=== PATIENT | female | born 1970 | race Caucasian/White ===

== ENCOUNTER 2017-01-03 11:58 | Emergency (ER) | payer MEDICAID ==
[~2017-01-03] VITALS: Ht 175.3 cm; Wt 117.9 kg
[~2017-01-03 11:58] MED LIST: ASPI-1094 PO
--- NOTE | 2017-01-03 12:29 | NUR ---
ua collected and sent to lab.
--- NOTE | 2017-01-03 12:32 | NUR ---
er md at the bedside for eval and exam.
[2017-01-03 12:54] LABS: *BILIRUBIN,URIN NEGATIVE (NEGATIVE); *BLOOD, URINE Trace-lysed (NEGATIVE); *CLARITY,URINE CLOUDY (CLEAR); *COLOR,URINE YELLOW (YELLOW); *KETONES,URINE NEGATIVE (NEGATIVE); *PROTEIN,URINE TRACE (NEGATIVE); *UROBILINOGEN,URINE 0.2 E.U./dl (NORMAL); LEUKOCYTE ESTERASE ,URINE 1+ (NEGATIVE); NITRITE, URINE NEGATIVE (NEGATIVE); UGLUCOSE NEGATIVE (NEGATIVE)
[2017-01-03 13:03] LABS: *URINE HCG, QUAL NEGATIVE (NEGATIVE)
[2017-01-03 13:07] LABS: RBC,URINE 0-3 /HPF (0-3)
[2017-01-03 13:08] LABS: BACTERIA,URINE FEW /HPF (NONE SEEN); SQUAMOUS EPITHELIAL CELL,UR MODERATE /HPF (NONE SEEN)
[2017-01-03 13:09] LABS: WBC,URINE TNTC /HPF (0-3)
--- NOTE | 2017-01-03 13:21 | NUR ---
Patient discharged to home in stable conditon. Written and verbal after care instructions given. Patient verbalizes understanding of instructions.
[2017-01-03 13:22] VITALS: BP 151/81
== END 2017-01-03 13:25 | disposition home or self-care (01) ==
LOC: ER 12:10
DX: N30.90 Cystitis, unspecified without hematuria (principal); J45.909 Unspecified asthma, uncomplicated; E66.9 Obesity, unspecified; F17.200 Nicotine dependence, unspecified, uncomplicated; Z88.0 Allergy status to penicillin; Z88.2 Allergy status to sulfonamides; Z88.6 Allergy status to analgesic agent; Z79.82 Long term (current) use of aspirin
CPT/HCPCS: 81001; 84703; 87086; 99284; A4663; 87077

== ENCOUNTER 2018-07-04 19:10 | Emergency (ER) | payer MEDICAID, OTHER ==
[~2018-07-04] VITALS: Ht 175.3 cm; Wt 127.0 kg
--- NOTE | 2018-07-04 19:35 | NUR ---
DILIA DOMINGO AT BEDSIDE FOR MSE.
[2018-07-04 19:50] LABS: *BILIRUBIN,URIN NEGATIVE (NEGATIVE); *BLOOD, URINE NEGATIVE (NEGATIVE); *CLARITY,URINE SLIGHTLY CLOUDY (CLEAR); *COLOR,URINE YELLOW (YELLOW); *KETONES,URINE NEGATIVE (NEGATIVE); *PROTEIN,URINE NEGATIVE (NEGATIVE); *UROBILINOGEN,URINE 0.2 E.U./dl (NORMAL); LEUKOCYTE ESTERASE ,URINE NEGATIVE (NEGATIVE); NITRITE, URINE NEGATIVE (NEGATIVE); UGLUCOSE NEGATIVE (NEGATIVE)
[2018-07-04 19:52] LABS: *URINE HCG, QUAL NEGATIVE (NEGATIVE)
[2018-07-04 19:56] LABS: BACTERIA,URINE MODERATE /HPF (NONE SEEN); SQUAMOUS EPITHELIAL CELL,UR MANY /HPF (NONE SEEN); WBC,URINE 0-3 /HPF (0-3)
[2018-07-04 19:57] LABS: MUCUS,URINE MANY /LPF (0-FEW)
[2018-07-04 19:58] LABS: BASOPHILS # (AUTO) 0.1 K/uL (0.0-8.0); BASOPHILS % (AUTO) 0.7 % (0.0-2.0); EOSINOPHILS # (AUTO) 0.3 K/uL (0.0-0.7); EOSINOPHILS % (AUTO) 3.7 % (0.0-7.0); HEMATOCRIT 40.6 % (31.2-41.9); HEMOGLOBIN 14.3 g/dL (10.9-14.3); LYMPHOCYTES # (AUTO) 2.9 K/uL (20.0-40.0); LYMPHOCYTES % (AUTO) 33.7 % (20.5-51.5); MEAN CORPUSCULAR HEMOGLOBIN 31.4 uug (24.7-32.8); MEAN CORPUSCULAR HGB CONC 35 g/dL (32.3-35.6); MEAN CORPUSCULAR VOLUME 89.5 fL (75.5-95.3); MONOCYTES # (AUTO) 0.4 K/uL (2.0-10.0); MONOCYTES % (AUTO) 5.1 % (0.0-11.0); NEUTROPHILS # (AUTO) 4.8 K/uL (1.8-8.9); NEUTROPHILS % (AUTO) 56.8 % (38.5-71.5); PLATELET COUNT (AUTO) 279 K/uL (179-408); RED BLOOD CELL COUNT(AUTO) 4.54 MIL/uL (3.63-4.92); WHITE BLOOD COUNT (AUTO) 8.5 K/uL (3.8-11.8)
[2018-07-04 20:06] LABS: POTASSIUM 3.9 mmol/L (3.5-5.1)
[2018-07-04] MEDS ORDERED: KETOROLAC TROMETHAMINE 30 MG INJ ONE (20:06)
[2018-07-04 20:15] LABS: BILIRUBIN,DIRECT 0.1 mg/dL (0.0-0.2); BILIRUBIN,TOTAL 0.2 mg/dL (0.2-1.0); TOTAL PROTEIN, SERUM 7.9 g/dL (6.4-8.2)
[2018-07-04] MEDS ORDERED: KETOROLAC TROMETHAMINE 30 MG INJ IVP ONE (20:15)
[2018-07-04] MEDS ORDERED: ONDANSETRON 4 MG/2 ML VIAL ONE (20:32)
--- NOTE | 2018-07-04 20:36 | NUR ---
PT TAKEN TO RADIOLOGY FOR CT SCAN.
[2018-07-04] MEDS ORDERED: ONDANSETRON IV *ER 4 MG/2 ML VIAL IV ONE (20:45)
--- NOTE | 2018-07-04 20:55 | NUR ---
PT BACK IN DEPARTMENT FROM RADIOLOGY.
--- NOTE | 2018-07-04 21:12 | NUR ---
DCPatient discharged to home in stable conditon. Written and verbal after care instructions given. Patient verbalizes understanding of instructions. PT D/C W/ PRESCRIPTION. ALL BELONGINGS W/ PT. PT SELF-AMBULATED WITHOUT DIFFICULTY. 20G L AC IV ACCESS REMOVED PRIOR TO D/C - INNER CANNULA INTACT.
[2018-07-04 21:14] VITALS: BP 152/84
== END 2018-07-04 21:14 | disposition home or self-care (01) ==
LOC: ER 19:10
DX: R10.84 Generalized abdominal pain (principal); J45.909 Unspecified asthma, uncomplicated; F17.200 Nicotine dependence, unspecified, uncomplicated; Z88.0 Allergy status to penicillin; Z88.5 Allergy status to narcotic agent; Z88.2 Allergy status to sulfonamides
CPT/HCPCS: 36415; 74176; 80048; 80076; 81001; 83690; 84703; 85025; 96374; 96375; 99285; J1885; J2405; A4663

== ENCOUNTER 2018-11-23 22:00 | Emergency (ER) | payer BC, OTHER ==
[~2018-11-23] VITALS: Ht 175.3 cm; Wt 136.1 kg
--- NOTE | 2018-11-23 22:17 | NUR ---
Pt. ambulated into ED w/ c/o R knee pain x 1 week, pt. states she had meniscus tear previously, A/Ox4,
--- NOTE | 2018-11-23 22:18 | NUR ---
Called Rad. for xray
--- NOTE | 2018-11-23 22:29 | NUR ---
Rad. tech. at bedside
--- NOTE | 2018-11-23 22:57 | NUR ---
Patient discharged to home in stable conditon. Written and verbal after care instructions given. Patient verbalizes understanding of instructions. Pt. d/c per MD order, d/c papers signed, all belongings w/ pt., ID band removed, ambulated off unit w/ steady gait, NAD
== END 2018-11-23 23:00 | disposition home or self-care (01) ==
LOC: ER 22:02
DX: M25.561 Pain in right knee (principal); J45.909 Unspecified asthma, uncomplicated; F17.290 Nicotine dependence, other tobacco product, uncomplicated; Z71.6 Tobacco abuse counseling; Z88.0 Allergy status to penicillin; Z88.5 Allergy status to narcotic agent; Z88.2 Allergy status to sulfonamides
CPT/HCPCS: 73562; A4663

== ENCOUNTER 2020-07-01 23:46 | Emergency (ER) | payer BC, OTHER ==
[~2020-07-01] VITALS: Ht 175.3 cm; Wt 128.4 kg
[2020-07-02] MEDS ORDERED: DICL100G31 TP (00:02)
[2020-07-02] MEDS ORDERED: IBUPROFEN 800 MG TABLET PO ONE (00:15)
[2020-07-02] MEDS ORDERED: IBUPROFEN 800 MG TABLET ONE (00:35)
--- NOTE | 2020-07-02 01:33 | NUR ---
Patient discharged to home in stable condition. Written and verbal after care instructions given. Patient verbalizes understanding of instructions. Stressed follow up or return to ER for worsening s/s.
== END 2020-07-02 01:34 | disposition home or self-care (01) ==
LOC: ER 23:51
DX: M25.562 Pain in left knee (principal); E66.9 Obesity, unspecified; Z68.41 Body mass index [BMI] 40.0-44.9, adult; Z86.718 Personal history of other venous thrombosis and embolism; J45.909 Unspecified asthma, uncomplicated; Z88.6 Allergy status to analgesic agent; Z88.0 Allergy status to penicillin; Z88.7 Allergy status to serum and vaccine
CPT/HCPCS: A4663

== ENCOUNTER 2021-08-11 21:18 | Emergency (ER) | payer BC, MEDICAID ==
[~2021-08-11] VITALS: Ht 175.3 cm; Wt 122.5 kg
[~2021-08-11 21:18] MED LIST changes: -ASPI-1094 PO; +DICL100G31 TP
--- NOTE | 2021-08-11 21:32 | NUR ---
DR. VASQUEZ AT BEDSIDE, MSE IN PROGRESS.
--- NOTE | 2021-08-11 21:40 | NUR ---
ADRIENNE VASQUEZ FOR PELVIC EXAM.
[2021-08-11] MEDS: diphenhydrAMINE 50 MG/1 ML VIAL IM ONE (21:56)
[2021-08-11] MEDS ORDERED: diphenhydrAMINE 50 MG/1 ML VIAL ONE (21:57)
[2021-08-11] MEDS: KETOROLAC TROMETHAMINE 60 MG INJ IM ONE (21:57)
[2021-08-11] MEDS ORDERED: KETOROLAC TROMETHAMINE 60 MG INJ IM ONE (21:58)
[2021-08-11 22:15] LABS: *BILIRUBIN,URIN NEGATIVE (NEGATIVE); *BLOOD, URINE NEGATIVE (NEGATIVE); *CLARITY,URINE CLEAR (CLEAR); *COLOR,URINE YELLOW (YELLOW); *KETONES,URINE NEGATIVE (NEGATIVE); *UROBILINOGEN,URINE 0.2 E.U./dl (NORMAL); LEUKOCYTE ESTERASE ,URINE NEGATIVE (NEGATIVE); NITRITE, URINE NEGATIVE (NEGATIVE); PH,URINE 6.5 (5.0-8.0); UGLUCOSE 2+ (NEGATIVE)
[2021-08-11] MEDS ORDERED: TRIA80OI TP (23:09)
[2021-08-11 23:26] VITALS: BP 155/88
== END 2021-08-11 23:26 | disposition home or self-care (01) ==
LOC: ER 21:20
DX: L30.9 Dermatitis, unspecified (principal); Z88.0 Allergy status to penicillin; Z88.2 Allergy status to sulfonamides; Z86.718 Personal history of other venous thrombosis and embolism; E66.9 Obesity, unspecified; Z68.39 Body mass index [BMI] 39.0-39.9, adult; J45.909 Unspecified asthma, uncomplicated
CPT/HCPCS: 81003; 87210; 87491; 96372 ×2; 99284; J1200; J1885; A4663

== ENCOUNTER 2022-12-17 03:17 | Emergency (ER) | payer MEDICAID ==
[~2022-12-17] VITALS: Ht 175.3 cm; Wt 127.0 kg
[~2022-12-17 03:17] MED LIST changes: +TRIA80OI TP
--- NOTE | 2022-12-17 03:34 | NUR ---
Observed patient walk with a steady gait. NAD noted.
[2022-12-17] MEDS ORDERED: CEFTRIAXONE /D5W 50ML IVPB **ER PYXIS IV ONE (03:55)
[2022-12-17] MEDS ORDERED: CEFTRIAXONE 1 G VIAL ONE (03:56)
[2022-12-17] MEDS ORDERED: CEFTRIAXONE 2 G in IV DEXTROSE 5% 100 ML IV ONE (04:00)
[2022-12-17] MEDS ORDERED: LIDOCAINE HCL 1% 20 ML VIAL IJ ONE (04:00)
[2022-12-17] MEDS ORDERED: LIDOCAINE 1%-EPI 1:100,000 20 ML VIAL ONE (04:26)
--- NOTE | 2022-12-17 04:47 | NUR ---
Chaperoned Dr. Gandhi during I&D procdure.
[2022-12-17] MEDS ORDERED: VANCOMYCIN 1000 MG VIAL ONE (05:12)
[2022-12-17] MEDS ORDERED: VANCOMYCIN IV 0 ML ONE (05:12)
[2022-12-17] MEDS ORDERED: KETOROLAC TROMETHAMINE 15 MG INJ IVP ONE (05:15)
[2022-12-17] MEDS ORDERED: IV NORMAL SALINE 500 ML BAG IV ONE (05:15)
[2022-12-17] MEDS ORDERED: VANCOMYCIN IV 400 ML ONE (05:19)
--- NOTE | 2022-12-17 05:27 | NUR ---
Pharmacy: first bag of vancomycin 1 gm IVPB was defective; therefore it was discared.
[2022-12-17] MEDS ORDERED: VANCOMYCIN IV 2,000 MG in IV DEXTROSE 5% 500 ML IV ONE (06:00)
--- NOTE | 2022-12-17 06:15 | NUR ---
Patient has decided to AMA, approxiately 1/4 of the 2000mg dosage was given. The IV has been dc'd and the last bag of vancomycin will be returned to med room.
[2022-12-17] MEDS ORDERED: CLIN300C12 PO (06:16)
--- NOTE | 2022-12-17 06:20 | NUR ---
Patient does not wish to proceed with medical care recommended by Dr. Gandhi. Patient given information related to possible complications, up to and including , which could occur as a result of leaving the hospital at this time. Patient verbalizes understanding of risks involved due to leaving against medical advice. Patient has signed AMA form.
== END 2022-12-17 06:22 | disposition left against medical advice (07) ==
LOC: ER 03:17
DX: S20.161A Insect bite (nonvenomous) of breast, right breast, initial encounter (principal); N61.0 Mastitis without abscess; J45.909 Unspecified asthma, uncomplicated; F17.210 Nicotine dependence, cigarettes, uncomplicated; Z88.0 Allergy status to penicillin; Z88.2 Allergy status to sulfonamides; Z88.5 Allergy status to narcotic agent; Z79.2 Long term (current) use of antibiotics; Z79.899 Other long term (current) drug therapy
CPT/HCPCS: 99284; 96365; 10060; 87070; 87075; 96367; J0696 ×3; J3490; J3370; A4663; J7060

== ENCOUNTER 2022-12-21 13:30 | Emergency (ER) | payer MEDICAID ==
[~2022-12-21] VITALS: Ht 175.3 cm; Wt 127.0 kg
[~2022-12-21 13:30] MED LIST changes: +CLIN300C12 PO
[2022-12-21] MEDS ORDERED: CLIN300C12 PO (13:41)
--- NOTE | 2022-12-21 13:45 | NUR ---
Female therapy teacher accompanied female patient for (Dr Claros).
[2022-12-21 13:54] VITALS: BP 150/99
== END 2022-12-21 13:54 | disposition home or self-care (01) ==
LOC: ER 13:30
DX: N61.0 Mastitis without abscess (principal); J45.909 Unspecified asthma, uncomplicated; F17.210 Nicotine dependence, cigarettes, uncomplicated; Z88.0 Allergy status to penicillin; Z88.2 Allergy status to sulfonamides; Z88.5 Allergy status to narcotic agent; Z79.2 Long term (current) use of antibiotics; Z79.899 Other long term (current) drug therapy
CPT/HCPCS: A4663

== ENCOUNTER 2024-12-04 14:21 | Emergency (ER) | payer MEDICAID ==
[~2024-12-04] VITALS: Ht 175.3 cm; Wt 91.6 kg
[2024-12-04] MEDS ORDERED: TDAP DIPH,PERTUSS,TET VAC/PF 0.5 ML DISP.SYRIN IM ONE (14:57)
[2024-12-04] MEDS ORDERED: NEOMY/BACITRA/POLYMYXIN B OINT UD PACKET TP ONE (14:58)
[2024-12-04] MEDS ORDERED: DOXY100C5 PO (15:01)
[2024-12-04] MEDS: NEOMY/BACITRA/POLYMYXIN B OINT UD PACKET TP ONE (15:25)
[2024-12-04] MEDS: TDAP DIPH,PERTUSS,TET VAC/PF 0.5 ML DISP.SYRIN IM ONE (15:25)
[2024-12-04 15:43] VITALS: BP 149/86; TEMP 97.7; O2SAT 99
== END 2024-12-04 15:44 | disposition home or self-care (01) ==
LOC: ER 14:21
DX: S61.451A Open bite of right hand, initial encounter (principal); E11.9 Type 2 diabetes mellitus without complications; F17.200 Nicotine dependence, unspecified, uncomplicated; Z87.01 Personal history of pneumonia (recurrent); Z87.442 Personal history of urinary calculi; Z87.59 Personal history of other complications of pregnancy, childbirth and the puerperium; Z88.0 Allergy status to penicillin; Z88.1 Allergy status to other antibiotic agents; Z88.2 Allergy status to sulfonamides; Z88.5 Allergy status to narcotic agent; Z98.51 Tubal ligation status; W54.0XXA Bitten by dog, initial encounter; Y93.89 Activity, other specified; Y92.89 Other specified places as the place of occurrence of the external cause; Y99.8 Other external cause status
CPT/HCPCS: 90715; A4606; A4663